=== PATIENT | female | born 1985 | race Two or more races ===

== ENCOUNTER 2022-01-21 22:41 | Emergency (ER) | payer MEDICAID ==
[~2022-01-21] VITALS: Ht 165.1 cm; Wt 113.0 kg
[2022-01-21 23:02] VITALS: BP 147/94
[2022-01-22] MEDS ORDERED: proparacaine 0.5% ophthalmic drops 15ml EACHEYE ONE (03:40)
[2022-01-22] MEDS ORDERED: polymyxin B sulf/tmp ophth drops 10ml EACHEYE ONE (03:50)
[2022-01-22] MEDS ORDERED: POLOS EACHEYE (03:52)
== END 2022-01-22 04:24 | disposition home or self-care (01) ==
LOC: ER 22:43
DX: S05.02XA Injury of conjunctiva and corneal abrasion without foreign body, left eye, initial encounter (principal); S05.01XA Injury of conjunctiva and corneal abrasion without foreign body, right eye, initial encounter; X58.XXXA Exposure to other specified factors, initial encounter; Y93.89 Activity, other specified; Y92.89 Other specified places as the place of occurrence of the external cause; Y99.8 Other external cause status
CPT/HCPCS: 99283; 99285